=== PATIENT | male | born 1945 | race Caucasian/White ===

== ENCOUNTER 2024-01-27 10:37 | Outpatient (CLI) | payer MEDICARE | END 2024-01-27 10:38 | disposition home or self-care (01) | LOC: CSHWCC 10:37 | PROVIDERS: ATTEND Nurse Practitioner Family | DX: L89.322 Pressure ulcer of left buttock, stage 2 (principal); I50.22 Chronic systolic (congestive) heart failure; Z99.81 Dependence on supplemental oxygen | CPT/HCPCS: 97597 ==

== ENCOUNTER 2024-02-03 09:45 | Outpatient (CLI) | payer MEDICARE | END 2024-02-03 09:46 | disposition home or self-care (01) | LOC: CSHWCC 09:45 | PROVIDERS: ATTEND Nurse Practitioner Family | DX: L89.322 Pressure ulcer of left buttock, stage 2 (principal); I50.22 Chronic systolic (congestive) heart failure; Z99.81 Dependence on supplemental oxygen | CPT/HCPCS: 99212; G0463 ==

== ENCOUNTER 2024-02-16 11:29 | Outpatient (CLI) | payer MEDICARE | END 2024-02-16 11:30 | disposition home or self-care (01) | LOC: CSHWCC 11:29 | PROVIDERS: ATTEND Nurse Practitioner Family | DX: L89.322 Pressure ulcer of left buttock, stage 2 (principal); I50.22 Chronic systolic (congestive) heart failure; Z99.81 Dependence on supplemental oxygen | CPT/HCPCS: 99213; G0463 ==

== ENCOUNTER 2024-02-24 10:05 | Outpatient (CLI) | payer MEDICARE | END 2024-02-24 10:06 | disposition home or self-care (01) | LOC: CSHWCC 10:05 | PROVIDERS: ATTEND Nurse Practitioner Family | DX: L89.322 Pressure ulcer of left buttock, stage 2 (principal); I50.22 Chronic systolic (congestive) heart failure; Z99.81 Dependence on supplemental oxygen | CPT/HCPCS: 99212; G0463 ==